=== PATIENT | female | born 1945 | race Caucasian/White ===

== ENCOUNTER 2018-06-14 06:34 | Inpatient (IN) | payer MEDICARE, BC ==
[~2018-06-14] VITALS: Ht 157.5 cm; Wt 81.8 kg
[~2018-06-14 06:34] MED LIST: ALBU0.63 NEB; AMIO200T40 PO; APIXABAN PO; ERGO500014 PO; FURO40TA4 PO; POTA20PA40 PO; PRED5TAB PO; TIOT18CA3 INH
[2018-06-14] MEDS ORDERED: albuterol 2.5 MG/3 ML nebule CONTNEB PRN (07:00)
[2018-06-14] MEDS ORDERED: methylPREDNISolone sod succ 125mg/2ml vial IV ONE (07:00)
[2018-06-14 07:45] LABS: ABG BASE EXCESS 12.2 mmol/L (-2.0-3.0); ABG HCO3 42.3 mmol/L (22.0-26.0); ABG OXYGEN SATURATION 96.8 % (95-98); ABG PCO2 (T) 89.7 mmHg (32.0-45.0); ABG PH (T) 7.291 (7.350-7.450); ABG PO2 (T) 98.1 mmHg (83-108); ALLEN'S TEST Positive; FCOHb 0.5 % (0.5-1.5); FMetHb 0.1 % (0.3-1.12); FO2Hb 96.2 % (94-100); TOTAL HEMOGLOBIN 12.1 G/dl (12.0-16.0)
[2018-06-14] MEDS ORDERED: LORA0.5T PO (07:48)
[2018-06-14] MEDS ORDERED: PANT40TA4 PO (07:48)
[2018-06-14] MEDS ORDERED: APIX5TAB3 PO (07:48)
[2018-06-14] MEDS ORDERED: ALBU18HF2 INH (07:48)
[2018-06-14 07:58] LABS: BASOPHILS % (AUTO) 0.2 % (0-1); EOSINOPHILS # (AUTO) 0.2 X10'3 (0-0.9); EOSINOPHILS % (AUTO) 1.6 % (0-6); HEMATOCRIT 36.2 % (35.0-45.0); HEMOGLOBIN 11.4 g/dl (12.0-16.0); LYMPHOCYTES # (AUTO) 1.1 X10'3 (1.1-4.8); LYMPHOCYTES % (AUTO) 9.9 % (21-51); MEAN CORPUSCULAR HEMOGLOBIN 31.6 PG (27.0-31.0); MEAN CORPUSCULAR HGB CONC 31.6 % (33.0-36.5); MEAN CORPUSCULAR VOLUME 99.9 FL (78-98); MEAN PLATELET VOLUME 9.6 FL (7.4-10.4); MONOCYTES # (AUTO) 1.1 X10'3 (0-0.9); MONOCYTES % (AUTO) 9.5 % (2-12); NEUTROPHILS # (AUTO) 9.1 X10'3 (1.8-7.7); NEUTROPHILS % (AUTO) 78.8 % (42-75); PLATELET COUNT 178 X10'3 (140-440); RED BLOOD COUNT 3.63 X10'6 (4.20-5.60); RED CELL DISTRIBUTION WIDTH 15.8 % (11.5-14.5); WHITE BLOOD COUNT 11.5 X10'3 (4.5-11.0)
[2018-06-14 08:21] LABS: ALANINE AMINOTRANSFERASE 26 U/L (12-78); ALBUMIN 3.6 G/DL (3.4-5.0); ALBUMIN/GLOBULIN RATIO 1.1 (1.1-1.5); ALKALINE PHOSPHATASE 52 IU/L (46-116); ANION GAP 5 (8-16); ASPARTATE AMINO TRANSFERASE 18 U/L (10-37); BILIRUBIN,TOTAL 0.3 MG/DL (0.1-1.0); BLOOD UREA NITROGEN 29 MG/DL (7-18); BUN/CREATININE RATIO 15.3 (6.6-38.0); CALCIUM 8.8 MG/DL (8.5-10.1); CHLORIDE 101 MMOL/L (99-107); GLUCOSE 150 MG/DL (70-104); POTASSIUM 3.4 MMOL/L (3.5-5.1); SODIUM 147 MMOL/L (135-145); TOTAL PROTEIN 6.8 G/DL (6.4-8.2); eGFR 26 ML/MIN
[2018-06-14 08:27] LABS: TOTAL CARBON DIOXIDE 41.4 MMOL/L (24-32)
[2018-06-14 09:41] LABS: ABG HCO3 38.6 mmol/L (22.0-26.0); ABG OXYGEN SATURATION 81.4 % (95-98); ABG PCO2 (T) 66.7 mmHg (32.0-45.0); ABG PO2 (T) 43.8 mmHg (83-108); ALLEN'S TEST Positive; FCOHb 0.6 % (0.5-1.5); FMetHb 0.1 % (0.3-1.12); FO2Hb 80.8 % (94-100); TOTAL HEMOGLOBIN 12.3 G/dl (12.0-16.0)
[2018-06-14] MEDS ORDERED: potassium Cl 40MEQ/NS 500ml 500 ML IV PRN ×2 (10:55)
[2018-06-14] MEDS ORDERED: magnesium 1gm/100ml D5W IVPB 100 ML IV PRN (10:55)
[2018-06-14] MEDS ORDERED: magnesium hydroxide 30ml (MOM) UD suspension PO PRN (10:55)
[2018-06-14] MEDS ORDERED: ondansetron/PF 4mg/2ml inj IV PRN (10:55)
[2018-06-14] MEDS ORDERED: morphine 2 MG/ML inj. syringe IV PRN ×2 (10:55)
[2018-06-14] MEDS ORDERED: mag hydrox/Alum hydrox/simeth 30ml oral suspension PO PRN (10:55)
[2018-06-14] MEDS ORDERED: acetaminophen 650mg rectal suppository RC PRN (10:55)
[2018-06-14] MEDS ORDERED: magnesium 4gm in 100ml NS 100 ML IV PRN (10:55)
[2018-06-14] MEDS ORDERED: potassium Cl 20 mEq SR tablet PO PRN ×2 (10:55)
[2018-06-14 12:45] VITALS: BP 104/54
[2018-06-14] MEDS: pantoprazole 40mg Tablet.DR PO SCH ×2 (13:08→19:54)
[2018-06-14] MEDS: amiodarone 200mg tablet PO SCH (13:08)
[2018-06-14] MEDS: apixaban 5mg tablet PO SCH ×2 (13:08→19:54)
[2018-06-14] MEDS: doxycycline inj 100 MG in normal saline 100ml IV soln 100 ML IV SCH ×2 (14:20→19:51)
[2018-06-14 15:00] VITALS: BP 117/54
[2018-06-14] MEDS: methylPREDNISolone sod succ 125mg/2ml vial IV SCH ×2 (15:58→23:24)
[2018-06-14 19:00] VITALS: BP 114/60
[2018-06-14] MEDS: furosemide 20 MG/2 ML vial IV SCH (19:54)
[2018-06-14 21:45] LABS: CLARITY,URINE CLEAR (Clear); COLOR,URINE YELLOW (Yellow); GLUCOSE, URINE NEGATIVE (Neg); KETONES,URINE NEGATIVE (Neg); LEUKOCYTE ESTERASE ,URINE NEGATIVE (Neg); NITRITES, URINE NEGATIVE (Neg); OCCULT BLOOD,URINE NEGATIVE (Neg); PROTEIN,URINE NEGATIVE (Neg); UROBILINOGEN,URINE 0.2 E.U/dL (0.2-1.0)
[2018-06-14 22:02] LABS: UA COLLECTION TYPE FOLEY CATH
[2018-06-14 23:00] VITALS: BP 116/53
[2018-06-15 03:00] VITALS: BP 124/68
[2018-06-15 05:04] LABS: BASOPHILS % (AUTO) 0 % (0-1); EOSINOPHILS % (AUTO) 0 % (0-6); HEMATOCRIT 31.1 % (35.0-45.0); LYMPHOCYTES # (AUTO) 0.3 X10'3 (1.1-4.8); LYMPHOCYTES % (AUTO) 3.3 % (21-51); MEAN CORPUSCULAR HEMOGLOBIN 31.6 PG (27.0-31.0); MEAN CORPUSCULAR HGB CONC 32.1 % (33.0-36.5); MEAN CORPUSCULAR VOLUME 98.4 FL (78-98); MEAN PLATELET VOLUME 9.9 FL (7.4-10.4); MONOCYTES # (AUTO) 0.2 X10'3 (0-0.9); MONOCYTES % (AUTO) 1.8 % (2-12); NEUTROPHILS # (AUTO) 8.1 X10'3 (1.8-7.7); NEUTROPHILS % (AUTO) 94.9 % (42-75); PLATELET COUNT 149 X10'3 (140-440); RED BLOOD COUNT 3.16 X10'6 (4.20-5.60); RED CELL DISTRIBUTION WIDTH 15.3 % (11.5-14.5); WHITE BLOOD COUNT 8.5 X10'3 (4.5-11.0)
[2018-06-15 05:18] LABS: ALANINE AMINOTRANSFERASE 20 U/L (12-78); ALBUMIN 3.1 G/DL (3.4-5.0); ALBUMIN/GLOBULIN RATIO 1.1 (1.1-1.5); ALKALINE PHOSPHATASE 50 IU/L (46-116); ANION GAP 3 (8-16); ASPARTATE AMINO TRANSFERASE 15 U/L (10-37); BILIRUBIN,TOTAL 0.4 MG/DL (0.1-1.0); BLOOD UREA NITROGEN 32 MG/DL (7-18); BUN/CREATININE RATIO 19.6 (6.6-38.0); CHLORIDE 101 MMOL/L (99-107); CHOL/HDL RATIO 2.3 (0.00-4.99); CHOLESTEROL 205 MG/DL (0-200); CREATININE 1.63 MG/DL (0.40-0.90); GLUCOSE 151 MG/DL (70-104); HDL CHOLESTEROL 88 MG/DL (35-60); LDL CHOLESTEROL 104 MG/DL (50-100); MAGNESIUM 1.9 MG/DL (1.5-2.4); POTASSIUM 4.1 MMOL/L (3.5-5.1); SODIUM 142 MMOL/L (135-145); TOTAL CARBON DIOXIDE 38.4 MMOL/L (24-32); TRIGLYCERIDES 54 MG/DL (20-135); eGFR 31 ML/MIN
[2018-06-15] MEDS: ipratropium/albuterol 3ml nebule NEB PRN ×3 (07:21→14:47)
[2018-06-15] MEDS: K and/or MAG REPLACEMENT MC SCH (08:00)
[2018-06-15] MEDS: furosemide 20 MG/2 ML vial IV SCH ×2 (08:22→20:47)
[2018-06-15] MEDS: apixaban 5mg tablet PO SCH ×2 (08:22→20:46)
[2018-06-15] MEDS: methylPREDNISolone sod succ 125mg/2ml vial IV SCH ×2 (08:22→17:04)
[2018-06-15] MEDS: amiodarone 200mg tablet PO SCH (08:22)
[2018-06-15] MEDS: pantoprazole 40mg Tablet.DR PO SCH ×2 (08:22→20:46)
[2018-06-15] MEDS ORDERED: LORazepam 2 mg/ml vial IV PRN (10:40)
[2018-06-15] MEDS: doxycycline inj 100 MG in normal saline 100ml IV soln 100 ML IV SCH (11:10)
[2018-06-15 15:00] VITALS: BP 128/88
[2018-06-15] MEDS: DOXYCYCLINE 100MG CAPSULE PO SCH (17:03)
[2018-06-15] MEDS: sucralfate 1gm/10ml UD suspension PO SCH ×2 (17:04→20:47)
[2018-06-15 19:00] VITALS: BP 125/66
[2018-06-15] MEDS: lactobacillus rhamnosus 10,000 MMU CELLS/CAPSULE PO SCH (20:46)
[2018-06-15 23:00] VITALS: BP 129/60
[2018-06-16] MEDS: methylPREDNISolone sod succ 125mg/2ml vial IV SCH ×3 (01:17→15:18)
[2018-06-16 03:00] VITALS: BP 139/67
[2018-06-16 05:30] LABS: BASOPHILS % (AUTO) 0 % (0-1); EOSINOPHILS # (AUTO) 0.2 X10'3 (0-0.9); EOSINOPHILS % (AUTO) 1.5 % (0-6); HEMATOCRIT 31.3 % (35.0-45.0); HEMOGLOBIN 10.2 g/dl (12.0-16.0); LYMPHOCYTES # (AUTO) 0.4 X10'3 (1.1-4.8); LYMPHOCYTES % (AUTO) 2.6 % (21-51); MEAN CORPUSCULAR HEMOGLOBIN 31.7 PG (27.0-31.0); MEAN CORPUSCULAR HGB CONC 32.4 % (33.0-36.5); MEAN CORPUSCULAR VOLUME 97.6 FL (78-98); MEAN PLATELET VOLUME 10.2 FL (7.4-10.4); MONOCYTES # (AUTO) 0.3 X10'3 (0-0.9); MONOCYTES % (AUTO) 1.9 % (2-12); NEUTROPHILS # (AUTO) 13.1 X10'3 (1.8-7.7); PLATELET COUNT 158 X10'3 (140-440); RED BLOOD COUNT 3.21 X10'6 (4.20-5.60); RED CELL DISTRIBUTION WIDTH 15.8 % (11.5-14.5); WHITE BLOOD COUNT 13.9 X10'3 (4.5-11.0)
[2018-06-16 05:48] LABS: ALANINE AMINOTRANSFERASE 22 U/L (12-78); ALBUMIN 3.1 G/DL (3.4-5.0); ALBUMIN/GLOBULIN RATIO 1.1 (1.1-1.5); ALKALINE PHOSPHATASE 42 IU/L (46-116); ANION GAP 4 (8-16); ASPARTATE AMINO TRANSFERASE 12 U/L (10-37); BILIRUBIN,TOTAL 0.3 MG/DL (0.1-1.0); BLOOD UREA NITROGEN 48 MG/DL (7-18); BUN/CREATININE RATIO 28.6 (6.6-38.0); CALCIUM 8.9 MG/DL (8.5-10.1); CHLORIDE 101 MMOL/L (99-107); CREATININE 1.68 MG/DL (0.40-0.90); GLUCOSE 145 MG/DL (70-104); MAGNESIUM 2.1 MG/DL (1.5-2.4); POTASSIUM 4.4 MMOL/L (3.5-5.1); SODIUM 144 MMOL/L (135-145); TOTAL CARBON DIOXIDE 39.5 MMOL/L (24-32); eGFR 30 ML/MIN
[2018-06-16] MEDS: K and/or MAG REPLACEMENT MC SCH (08:00)
[2018-06-16] MEDS: ipratropium/albuterol 3ml nebule NEB PRN ×4 (08:12→20:29)
[2018-06-16 08:41] VITALS: BP 142/66
[2018-06-16] MEDS: lactobacillus rhamnosus 10,000 MMU CELLS/CAPSULE PO SCH ×2 (08:51→20:42)
[2018-06-16] MEDS: amiodarone 200mg tablet PO SCH (08:52)
[2018-06-16] MEDS: apixaban 5mg tablet PO SCH ×2 (08:52→20:42)
[2018-06-16] MEDS: DOXYCYCLINE 100MG CAPSULE PO SCH ×2 (08:52→16:57)
[2018-06-16] MEDS: montelukast 10mg tablet PO SCH (08:52)
[2018-06-16] MEDS: furosemide 20 MG/2 ML vial IV SCH ×2 (08:52→20:42)
[2018-06-16] MEDS: pantoprazole 40mg Tablet.DR PO SCH ×2 (08:52→20:42)
[2018-06-16] MEDS: sucralfate 1gm/10ml UD suspension PO SCH ×4 (08:58→20:42)
[2018-06-16 11:00] VITALS: BP 124/56
[2018-06-16 15:00] VITALS: BP 142/69
[2018-06-16 19:00] VITALS: BP 115/54
[2018-06-16] MEDS: fluticasone nasal spray 16GM bottle NS SCH (20:49)
[2018-06-16 23:00] VITALS: BP 114/54
[2018-06-17] VITALS (8 sets, daily range): BP systolic 117–139; BP diastolic 51–102
[2018-06-17] MEDS: methylPREDNISolone sod succ 125mg/2ml vial IV SCH ×3 (00:45→15:18)
[2018-06-17 05:07] LABS: BASOPHILS % (AUTO) 0 % (0-1); EOSINOPHILS % (AUTO) 0 % (0-6); HEMATOCRIT 32.9 % (35.0-45.0); HEMOGLOBIN 10.7 g/dl (12.0-16.0); LYMPHOCYTES # (AUTO) 0.2 X10'3 (1.1-4.8); LYMPHOCYTES % (AUTO) 1.6 % (21-51); MEAN CORPUSCULAR HEMOGLOBIN 31.7 PG (27.0-31.0); MEAN CORPUSCULAR HGB CONC 32.4 % (33.0-36.5); MEAN CORPUSCULAR VOLUME 97.8 FL (78-98); MEAN PLATELET VOLUME 10.2 FL (7.4-10.4); MONOCYTES # (AUTO) 0.4 X10'3 (0-0.9); MONOCYTES % (AUTO) 2.8 % (2-12); NEUTROPHILS % (AUTO) 95.6 % (42-75); PLATELET COUNT 151 X10'3 (140-440); RED BLOOD COUNT 3.36 X10'6 (4.20-5.60); RED CELL DISTRIBUTION WIDTH 15.4 % (11.5-14.5); WHITE BLOOD COUNT 14.6 X10'3 (4.5-11.0)
[2018-06-17 05:34] LABS: ALANINE AMINOTRANSFERASE 19 U/L (12-78); ALBUMIN 3.1 G/DL (3.4-5.0); ALBUMIN/GLOBULIN RATIO 1.1 (1.1-1.5); ALKALINE PHOSPHATASE 47 IU/L (46-116); ANION GAP 7 (8-16); ASPARTATE AMINO TRANSFERASE 11 U/L (10-37); BILIRUBIN,TOTAL 0.4 MG/DL (0.1-1.0); BLOOD UREA NITROGEN 44 MG/DL (7-18); BUN/CREATININE RATIO 27.8 (6.6-38.0); CALCIUM 8.6 MG/DL (8.5-10.1); CHLORIDE 101 MMOL/L (99-107); CREATININE 1.58 MG/DL (0.40-0.90); GLUCOSE 143 MG/DL (70-104); MAGNESIUM 2.1 MG/DL (1.5-2.4); POTASSIUM 3.5 MMOL/L (3.5-5.1); SODIUM 145 MMOL/L (135-145); TOTAL CARBON DIOXIDE 37.2 MMOL/L (24-32); TOTAL PROTEIN 5.9 G/DL (6.4-8.2); eGFR 32 ML/MIN
[2018-06-17] MEDS: sucralfate 1gm/10ml UD suspension PO SCH ×4 (07:40→21:37)
[2018-06-17] MEDS: furosemide 20 MG/2 ML vial IV SCH ×2 (07:40→21:37)
[2018-06-17] MEDS: lactobacillus rhamnosus 10,000 MMU CELLS/CAPSULE PO SCH ×2 (07:41→21:37)
[2018-06-17] MEDS: amiodarone 200mg tablet PO SCH (07:41)
[2018-06-17] MEDS: apixaban 5mg tablet PO SCH ×2 (07:42→21:36)
[2018-06-17] MEDS: pantoprazole 40mg Tablet.DR PO SCH ×2 (07:43→21:37)
[2018-06-17] MEDS: DOXYCYCLINE 100MG CAPSULE PO SCH ×2 (07:44→16:59)
[2018-06-17] MEDS: montelukast 10mg tablet PO SCH (07:44)
[2018-06-17] MEDS: fluticasone nasal spray 16GM bottle NS SCH (07:45)
[2018-06-17] MEDS: K and/or MAG REPLACEMENT MC SCH (08:00)
[2018-06-17 16:15] LABS: ABG BASE EXCESS 10.6 mmol/L (-2.0-3.0); ABG HCO3 35.7 mmol/L (22.0-26.0); ABG OXYGEN SATURATION 94.9 % (95-98); ABG PCO2 (T) 49.7 mmHg (32.0-45.0); ABG PH (T) 7.474 (7.350-7.450); ABG PO2 (T) 73.8 mmHg (83-108); ALLEN'S TEST Positive; FCOHb 0.3 % (0.5-1.5); FMetHb 0.2 % (0.3-1.12); FO2Hb 94.4 % (94-100); TOTAL HEMOGLOBIN 12.4 G/dl (12.0-16.0)
[2018-06-17] MEDS: ipratropium/albuterol 3ml nebule NEB PRN ×2 (19:54→23:04)
[2018-06-17] MEDS: diatr meglu/diatrizoate 30ml oral sol.-(3 dose) bottle PO SCH (21:38)
[2018-06-18] MEDS: methylPREDNISolone sod succ 125mg/2ml vial IV SCH ×3 (00:28→16:29)
[2018-06-18 02:00] VITALS: BP 123/55
[2018-06-18 05:51] LABS: BASOPHILS % (AUTO) 0 % (0-1); EOSINOPHILS % (AUTO) 0 % (0-6); HEMATOCRIT 35.3 % (35.0-45.0); HEMOGLOBIN 11.2 g/dl (12.0-16.0); LYMPHOCYTES # (AUTO) 0.2 X10'3 (1.1-4.8); LYMPHOCYTES % (AUTO) 1.7 % (21-51); MEAN CORPUSCULAR HGB CONC 31.8 % (33.0-36.5); MEAN CORPUSCULAR VOLUME 97.6 FL (78-98); MEAN PLATELET VOLUME 9.9 FL (7.4-10.4); MONOCYTES # (AUTO) 0.3 X10'3 (0-0.9); MONOCYTES % (AUTO) 2.7 % (2-12); NEUTROPHILS # (AUTO) 10.9 X10'3 (1.8-7.7); NEUTROPHILS % (AUTO) 95.6 % (42-75); PLATELET COUNT 159 X10'3 (140-440); RED BLOOD COUNT 3.62 X10'6 (4.20-5.60); RED CELL DISTRIBUTION WIDTH 15.5 % (11.5-14.5); WHITE BLOOD COUNT 11.4 X10'3 (4.5-11.0)
[2018-06-18 06:00] VITALS: BP 126/102
[2018-06-18 06:33] LABS: ALANINE AMINOTRANSFERASE 21 U/L (12-78); ALBUMIN 3.3 G/DL (3.4-5.0); ALBUMIN/GLOBULIN RATIO 1.1 (1.1-1.5); ALKALINE PHOSPHATASE 41 IU/L (46-116); ANION GAP 6 (8-16); ASPARTATE AMINO TRANSFERASE 15 U/L (10-37); BILIRUBIN,TOTAL 0.5 MG/DL (0.1-1.0); BLOOD UREA NITROGEN 48 MG/DL (7-18); BUN/CREATININE RATIO 29.3 (6.6-38.0); CALCIUM 9.1 MG/DL (8.5-10.1); CHLORIDE 101 MMOL/L (99-107); CREATININE 1.64 MG/DL (0.40-0.90); GLUCOSE 150 MG/DL (70-104); MAGNESIUM 2.3 MG/DL (1.5-2.4); POTASSIUM 3.7 MMOL/L (3.5-5.1); SODIUM 145 MMOL/L (135-145); TOTAL PROTEIN 6.3 G/DL (6.4-8.2); eGFR 31 ML/MIN
[2018-06-18] MEDS: pantoprazole 40mg Tablet.DR PO SCH ×2 (07:46→19:38)
[2018-06-18] MEDS: montelukast 10mg tablet PO SCH (07:47)
[2018-06-18] MEDS: amiodarone 200mg tablet PO SCH (07:47)
[2018-06-18] MEDS: DOXYCYCLINE 100MG CAPSULE PO SCH ×2 (07:48→19:39)
[2018-06-18] MEDS: lactobacillus rhamnosus 10,000 MMU CELLS/CAPSULE PO SCH ×2 (07:48→19:39)
[2018-06-18] MEDS: apixaban 5mg tablet PO SCH ×2 (07:48→19:38)
[2018-06-18] MEDS: fluticasone nasal spray 16GM bottle NS SCH (07:49)
[2018-06-18] MEDS: furosemide 20 MG/2 ML vial IV SCH ×2 (07:49→19:37)
[2018-06-18] MEDS: sucralfate 1gm/10ml UD suspension PO SCH ×4 (07:49→21:37)
[2018-06-18] MEDS: diatr meglu/diatrizoate 30ml oral sol.-(3 dose) bottle PO SCH ×2 (07:49→21:00)
[2018-06-18] MEDS: K and/or MAG REPLACEMENT MC SCH (08:00)
[2018-06-18] MEDS: ipratropium/albuterol 3ml nebule NEB PRN (08:15)
[2018-06-18 11:00] VITALS: BP 121/55
[2018-06-18 15:00] VITALS: BP 122/60
[2018-06-18 18:00] VITALS: BP 117/73
[2018-06-18] MEDS: simethicone 80mg chew tab PO SCH ×2 (21:00→21:37)
[2018-06-18 22:00] VITALS: BP 136/60
[2018-06-19] MEDS: methylPREDNISolone sod succ 125mg/2ml vial IV SCH ×2 (00:31→08:03)
[2018-06-19] MEDS: ipratropium/albuterol 3ml nebule NEB PRN ×4 (01:05→14:59)
[2018-06-19 02:00] VITALS: BP 131/58
[2018-06-19 06:54] LABS: BASOPHILS % (AUTO) 0 % (0-1); EOSINOPHILS # (AUTO) 0.1 X10'3 (0-0.9); EOSINOPHILS % (AUTO) 1.1 % (0-6); HEMOGLOBIN 11.1 g/dl (12.0-16.0); LYMPHOCYTES # (AUTO) 0.2 X10'3 (1.1-4.8); LYMPHOCYTES % (AUTO) 1.5 % (21-51); MEAN CORPUSCULAR HEMOGLOBIN 31.3 PG (27.0-31.0); MEAN CORPUSCULAR HGB CONC 31.6 % (33.0-36.5); MEAN PLATELET VOLUME 10.3 FL (7.4-10.4); MONOCYTES # (AUTO) 0.4 X10'3 (0-0.9); MONOCYTES % (AUTO) 3.7 % (2-12); NEUTROPHILS # (AUTO) 10.4 X10'3 (1.8-7.7); NEUTROPHILS % (AUTO) 93.7 % (42-75); PLATELET COUNT 138 X10'3 (140-440); RED BLOOD COUNT 3.54 X10'6 (4.20-5.60); RED CELL DISTRIBUTION WIDTH 15.8 % (11.5-14.5); WHITE BLOOD COUNT 11.1 X10'3 (4.5-11.0)
[2018-06-19 07:00] VITALS: BP 124/101
[2018-06-19 07:01] LABS: ALANINE AMINOTRANSFERASE 20 U/L (12-78); ALBUMIN/GLOBULIN RATIO 1.1 (1.1-1.5); ALKALINE PHOSPHATASE 38 IU/L (46-116); ANION GAP 5 (8-16); ASPARTATE AMINO TRANSFERASE 12 U/L (10-37); BILIRUBIN,TOTAL 0.5 MG/DL (0.1-1.0); BLOOD UREA NITROGEN 55 MG/DL (7-18); BUN/CREATININE RATIO 34.8 (6.6-38.0); CALCIUM 8.7 MG/DL (8.5-10.1); CHLORIDE 100 MMOL/L (99-107); CREATININE 1.58 MG/DL (0.40-0.90); GLUCOSE 145 MG/DL (70-104); MAGNESIUM 2.3 MG/DL (1.5-2.4); POTASSIUM 3.6 MMOL/L (3.5-5.1); SODIUM 144 MMOL/L (135-145); TOTAL CARBON DIOXIDE 39.3 MMOL/L (24-32); TOTAL PROTEIN 5.8 G/DL (6.4-8.2); eGFR 32 ML/MIN
[2018-06-19] MEDS: K and/or MAG REPLACEMENT MC SCH (08:00)
[2018-06-19] MEDS: montelukast 10mg tablet PO SCH (08:01)
[2018-06-19] MEDS: pantoprazole 40mg Tablet.DR PO SCH (08:01)
[2018-06-19] MEDS: simethicone 80mg chew tab PO SCH ×2 (08:01→13:51)
[2018-06-19] MEDS: furosemide 20 MG/2 ML vial IV SCH (08:02)
[2018-06-19] MEDS: sucralfate 1gm/10ml UD suspension PO SCH ×2 (08:02→12:49)
[2018-06-19] MEDS: lactobacillus rhamnosus 10,000 MMU CELLS/CAPSULE PO SCH (08:02)
[2018-06-19] MEDS: DOXYCYCLINE 100MG CAPSULE PO SCH (08:02)
[2018-06-19] MEDS: apixaban 5mg tablet PO SCH (08:02)
[2018-06-19] MEDS: amiodarone 200mg tablet PO SCH (08:10)
[2018-06-19] MEDS: fluticasone nasal spray 16GM bottle NS SCH (08:10)
[2018-06-19] MEDS ORDERED: MYL80T PO (11:44)
[2018-06-19] MEDS ORDERED: PRED20TA PO (11:44)
[2018-06-19] MEDS ORDERED: MONT10TA24 PO (11:44)
[2018-06-19] MEDS ORDERED: SUCR1ORA PO (11:44)
[2018-06-19] MEDS ORDERED: FLUT16SP18 NS (11:44)
[2018-06-19 15:04] VITALS: BP 127/62
== END 2018-06-19 15:17 | disposition home health service (06) | DRG 189 ==
LOC: ER 06:34 → ED HOLD 10:59 → PCU 3S 12:50
PROVIDERS: ADMIT Family Medicine; ATTEND Family Medicine
PROC: 5A09357 Assistance with Respiratory Ventilation, Less than 24 Consecutive Hours, Continuous Positive Airway Pressure (ICD-10-PCS; principal; 2018-06-14)
PROC: 5A09457 Assistance with Respiratory Ventilation, 24-96 Consecutive Hours, Continuous Positive Airway Pressure (ICD-10-PCS; 2018-06-15)
PROC: 5A09357 Assistance with Respiratory Ventilation, Less than 24 Consecutive Hours, Continuous Positive Airway Pressure (ICD-10-PCS; 2018-06-16)
PROC: 5A09357 Assistance with Respiratory Ventilation, Less than 24 Consecutive Hours, Continuous Positive Airway Pressure (ICD-10-PCS; 2018-06-17)
PROC: 5A09357 Assistance with Respiratory Ventilation, Less than 24 Consecutive Hours, Continuous Positive Airway Pressure (ICD-10-PCS; 2018-06-18)
DX: J96.20 Acute and chronic respiratory failure, unspecified whether with hypoxia or hypercapnia (principal); N17.9 Acute kidney failure, unspecified; J44.1 Chronic obstructive pulmonary disease with (acute) exacerbation; E87.4 Mixed disorder of acid-base balance; I13.0 Hypertensive heart and chronic kidney disease with heart failure and stage 1 through stage 4 chronic kidney disease, or unspecified chronic kidney disease; D64.9 Anemia, unspecified; T38.0X5A Adverse effect of glucocorticoids and synthetic analogues, initial encounter; F41.9 Anxiety disorder, unspecified; I48.2 Chronic atrial fibrillation; K29.50 Unspecified chronic gastritis without bleeding; J30.9 Allergic rhinitis, unspecified; K42.9 Umbilical hernia without obstruction or gangrene; N18.9 Chronic kidney disease, unspecified; Z60.2 Problems related to living alone; R14.0 Abdominal distension (gaseous); Z88.2 Allergy status to sulfonamides; Y92.89 Other specified places as the place of occurrence of the external cause; Z79.01 Long term (current) use of anticoagulants; Z81.8 Family history of other mental and behavioral disorders; Z87.891 Personal history of nicotine dependence
CPT/HCPCS: 36415; 36600; 71045; 74176; 80053; 80061; 81003; 82803; 82948; 83735; 83880; 84484; 85018; 85025; 87070; 93005; 93306; 94640; 94660; 94667; 94668; 94760; 97116; 97162; 97530; G0378; J1940; J2060; J2930; J3490; J7030; Q9963

== ENCOUNTER 2018-06-20 09:59 | Observation (INO) | payer MEDICARE, BC ==
[~2018-06-20] VITALS: Ht 162.6 cm; Wt 89.0 kg
[~2018-06-20 09:59] MED LIST changes: +ALBU18HF2 INH; +APIX5TAB3 PO; -APIXABAN PO; -ERGO500014 PO; +FLUT16SP18 NS; +LORA0.5T PO; +MONT10TA24 PO; +MYL80T PO; +PANT40TA4 PO; +PRED20TA PO; -PRED5TAB PO; +SUCR1ORA PO
[2018-06-20] MEDS ORDERED: methylPREDNISolone sod succ 125mg/2ml vial IV ONE (10:05)
[2018-06-20] MEDS ORDERED: albuterol 2.5 MG/3 ML nebule CONTNEB PRN (10:05)
[2018-06-20] MEDS ORDERED: ipratropium 0.5 MG/2.5ML nebule IH ONE (10:05)
[2018-06-20 10:16] LABS: ABG BASE EXCESS 16.1 mmol/L (-2.0-3.0); ABG HCO3 42.8 mmol/L (22.0-26.0); ABG OXYGEN SATURATION 93.9 % (95-98); ABG PH (T) 7.464 (7.350-7.450); ABG PO2 (T) 68.3 mmHg (83-108); FCOHb 0.3 % (0.5-1.5); FLOW 11 L/min; FMetHb 0.1 % (0.3-1.12); FO2Hb 93.5 % (94-100)
[2018-06-20 10:25] LABS: HEMATOCRIT 38.5 % (35.0-45.0); HEMOGLOBIN 12.3 g/dl (12.0-16.0); MEAN CORPUSCULAR HEMOGLOBIN 31.5 PG (27.0-31.0); MEAN CORPUSCULAR VOLUME 98.3 FL (78-98); PLATELET COUNT 138 X10'3 (140-440); RED BLOOD COUNT 3.92 X10'6 (4.20-5.60); RED CELL DISTRIBUTION WIDTH 15.8 % (11.5-14.5); WHITE BLOOD COUNT 16.2 X10'3 (4.5-11.0)
[2018-06-20 10:26] LABS: BASOPHILS % (AUTO) 0.1 % (0-1); EOSINOPHILS % (AUTO) 0 % (0-6); LYMPHOCYTES # (AUTO) 0.3 X10'3 (1.1-4.8); LYMPHOCYTES % (AUTO) 1.7 % (21-51); MEAN PLATELET VOLUME 8.9 FL (7.4-10.4); MONOCYTES # (AUTO) 0.6 X10'3 (0-0.9); NEUTROPHILS # (AUTO) 15.3 X10'3 (1.8-7.7); NEUTROPHILS % (AUTO) 94.2 % (42-75)
[2018-06-20 10:51] LABS: ALANINE AMINOTRANSFERASE 24 U/L (12-78); ALBUMIN 3.5 G/DL (3.4-5.0); ALBUMIN/GLOBULIN RATIO 1.2 (1.1-1.5); ALKALINE PHOSPHATASE 51 IU/L (46-116); ANION GAP 1 (8-16); ASPARTATE AMINO TRANSFERASE 16 U/L (10-37); BILIRUBIN,TOTAL 0.7 MG/DL (0.1-1.0); BLOOD UREA NITROGEN 50 MG/DL (7-18); BUN/CREATININE RATIO 28.9 (6.6-38.0); CALCIUM 9.1 MG/DL (8.5-10.1); CHLORIDE 98 MMOL/L (99-107); CREATININE 1.73 MG/DL (0.40-0.90); GLUCOSE 130 MG/DL (70-104); MAGNESIUM 2.2 MG/DL (1.5-2.4); POTASSIUM 3.3 MMOL/L (3.5-5.1); SODIUM 143 MMOL/L (135-145); TOTAL PROTEIN 6.5 G/DL (6.4-8.2); eGFR 29 ML/MIN
[2018-06-20] MEDS: magnesium 1gm/100ml D5W IVPB 100 ML IV SCH ×2 (10:51→12:18)
[2018-06-20 10:54] LABS: TOTAL CARBON DIOXIDE 43.7 MMOL/L (24-32)
[2018-06-20] MEDS ORDERED: mag hydrox/Alum hydrox/simeth 30ml oral suspension PO PRN (14:35)
[2018-06-20] MEDS ORDERED: magnesium hydroxide 30ml (MOM) UD suspension PO PRN (14:35)
[2018-06-20] MEDS ORDERED: ondansetron/PF 4mg/2ml inj IV PRN (14:35)
[2018-06-20] MEDS ORDERED: acetaminophen 325mg tablet PO PRN (14:35)
[2018-06-20] MEDS: ipratropium/albuterol 3ml nebule NEB SCH ×3 (15:47→23:33)
[2018-06-20] MEDS ORDERED: amiodarone 200mg tablet PO ONE (17:50)
[2018-06-20] MEDS: furosemide 40mg/4ml inj IV SCH (18:33)
[2018-06-20 20:04] VITALS: BP 130/55
[2018-06-20] MEDS: apixaban 5mg tablet PO SCH (20:28)
[2018-06-20 22:00] VITALS: BP 106/58
[2018-06-21 02:00] VITALS: BP 104/61
[2018-06-21] MEDS: ipratropium/albuterol 3ml nebule NEB SCH ×3 (03:34→11:34)
[2018-06-21 05:21] LABS: BASOPHILS % (AUTO) 0 % (0-1); EOSINOPHILS # (AUTO) 0.1 X10'3 (0-0.9); EOSINOPHILS % (AUTO) 1.2 % (0-6); HEMATOCRIT 32.9 % (35.0-45.0); HEMOGLOBIN 10.8 g/dl (12.0-16.0); LYMPHOCYTES # (AUTO) 0.1 X10'3 (1.1-4.8); LYMPHOCYTES % (AUTO) 1.1 % (21-51); MEAN CORPUSCULAR HEMOGLOBIN 31.6 PG (27.0-31.0); MEAN CORPUSCULAR HGB CONC 32.8 % (33.0-36.5); MEAN CORPUSCULAR VOLUME 96.6 FL (78-98); MEAN PLATELET VOLUME 10.5 FL (7.4-10.4); MONOCYTES # (AUTO) 0.4 X10'3 (0-0.9); MONOCYTES % (AUTO) 3.9 % (2-12); NEUTROPHILS # (AUTO) 10.5 X10'3 (1.8-7.7); NEUTROPHILS % (AUTO) 93.8 % (42-75); PLATELET COUNT 119 X10'3 (140-440); RED BLOOD COUNT 3.41 X10'6 (4.20-5.60); RED CELL DISTRIBUTION WIDTH 15.8 % (11.5-14.5); WHITE BLOOD COUNT 11.2 X10'3 (4.5-11.0)
[2018-06-21 05:29] LABS: ANION GAP 2 (8-16); BLOOD UREA NITROGEN 45 MG/DL (7-18); BUN/CREATININE RATIO 29.6 (6.6-38.0); CALCIUM 8.8 MG/DL (8.5-10.1); CHLORIDE 99 MMOL/L (99-107); CREATININE 1.52 MG/DL (0.40-0.90); GLUCOSE 151 MG/DL (70-104); SODIUM 145 MMOL/L (135-145); eGFR 33 ML/MIN
[2018-06-21 05:42] LABS: LARGE PLATELETS FEW; PLATELET ESTIMATE DECREASED
[2018-06-21 05:46] LABS: POTASSIUM 2.9 MMOL/L (3.5-5.1); TOTAL CARBON DIOXIDE 43.9 MMOL/L (24-32)
[2018-06-21] MEDS ORDERED: magnesium 1gm/100ml D5W IVPB 100 ML IV PRN (05:50)
[2018-06-21] MEDS ORDERED: magnesium Cl slow-release 64mg tablet PO PRN (05:50)
[2018-06-21] MEDS ORDERED: magnesium 4gm in 100ml NS 100 ML IV PRN (05:50)
[2018-06-21] MEDS ORDERED: potassium Cl 40MEQ/NS 500ml 500 ML IV PRN ×2 (05:50)
[2018-06-21] MEDS ORDERED: potassium Cl 20 mEq SR tablet PO PRN (05:50)
[2018-06-21 06:52] VITALS: BP 125/57
[2018-06-21] MEDS: furosemide 40mg/4ml inj IV SCH (07:59)
[2018-06-21] MEDS: apixaban 5mg tablet PO SCH (07:59)
[2018-06-21] MEDS ORDERED: amiodarone 200mg tablet PO SCH (08:00)
[2018-06-21] MEDS: potassium Cl 20 mEq SR tablet PO PRN ×2 (08:03→12:35)
[2018-06-21] MEDS ORDERED: predniSONE 20 mg tablet PO SCH (08:30)
[2018-06-21] MEDS ORDERED: MONT10TA21 PO (10:17)
[2018-06-21] MEDS ORDERED: SIME80TA16 PO (10:17)
[2018-06-21] MEDS ORDERED: FURO-149 PO (10:17)
[2018-06-21] MEDS ORDERED: SUCR1TAB PO (10:17)
[2018-06-21] MEDS ORDERED: fluticasone nasal spray 16GM bottle NS SCH (10:20)
[2018-06-21] MEDS ORDERED: FLUT16SP2 BOTHNARES (10:25)
[2018-06-21] MEDS ORDERED: PRED20TA PO (10:27)
[2018-06-21 11:00] VITALS: BP 125/59
[2018-06-21] MEDS ORDERED: rifaximin 550mg tablet PO SCH (13:00)
== END 2018-06-21 15:45 ==
LOC: ER 09:59 → ED HOLD 14:33 → PCU 3S 19:56
PROVIDERS: ADMIT Family Medicine; ATTEND Family Medicine
DX: J44.1 Chronic obstructive pulmonary disease with (acute) exacerbation (principal); J96.21 Acute and chronic respiratory failure with hypoxia; I26.09 Other pulmonary embolism with acute cor pulmonale; I13.0 Hypertensive heart and chronic kidney disease with heart failure and stage 1 through stage 4 chronic kidney disease, or unspecified chronic kidney disease; I50.32 Chronic diastolic (congestive) heart failure; N18.3 Chronic kidney disease, stage 3 (moderate); I48.91 Unspecified atrial fibrillation; E87.6 Hypokalemia; D64.9 Anemia, unspecified; Z87.891 Personal history of nicotine dependence; Z79.01 Long term (current) use of anticoagulants; R14.0 Abdominal distension (gaseous)
CPT/HCPCS: 36415; 36600; 71045; 80048; 80053; 82803; 83735; 83880; 84145; 84484; 85018; 85025; 87070; 93005; 94640; 94660; 94760; 96365; 96366; 96375; 96376; 97116; 97162; 97530; 99285; G0378; J1940; J2930; J7512

== ENCOUNTER 2018-06-22 05:15 | Emergency (ER) | payer MEDICARE, BC ==
[~2018-06-22] VITALS: Ht 162.6 cm; Wt 77.3 kg
[~2018-06-22 05:15] MED LIST changes: -FLUT16SP18 NS; +FLUT16SP2 BOTHNARES; +FURO-149 PO; +MONT10TA21 PO; -MONT10TA24 PO; -MYL80T PO; +SIME80TA16 PO; -SUCR1ORA PO; +SUCR1TAB PO
[2018-06-22] MEDS ORDERED: dexamethasone sod phosphate 10mg/ml inj IV STA (05:33)
[2018-06-22 05:37] LABS: BASOPHILS % (AUTO) 0 % (0-1); EOSINOPHILS # (AUTO) 0.1 X10'3 (0-0.9); EOSINOPHILS % (AUTO) 0.7 % (0-6); HEMATOCRIT 35.5 % (35.0-45.0); HEMOGLOBIN 11.5 g/dl (12.0-16.0); LYMPHOCYTES # (AUTO) 0.5 X10'3 (1.1-4.8); LYMPHOCYTES % (AUTO) 3.2 % (21-51); MEAN CORPUSCULAR HEMOGLOBIN 31.6 PG (27.0-31.0); MEAN CORPUSCULAR HGB CONC 32.3 % (33.0-36.5); MEAN CORPUSCULAR VOLUME 97.8 FL (78-98); MEAN PLATELET VOLUME 10.7 FL (7.4-10.4); MONOCYTES # (AUTO) 0.8 X10'3 (0-0.9); MONOCYTES % (AUTO) 5.3 % (2-12); NEUTROPHILS # (AUTO) 14.3 X10'3 (1.8-7.7); NEUTROPHILS % (AUTO) 90.8 % (42-75); PLATELET COUNT 132 X10'3 (140-440); RED BLOOD COUNT 3.63 X10'6 (4.20-5.60); WHITE BLOOD COUNT 15.8 X10'3 (4.5-11.0)
[2018-06-22 05:46] LABS: ALANINE AMINOTRANSFERASE 26 U/L (12-78); ALBUMIN 3.2 G/DL (3.4-5.0); ALBUMIN/GLOBULIN RATIO 1.1 (1.1-1.5); ALKALINE PHOSPHATASE 43 IU/L (46-116); ANION GAP 6 (8-16); ASPARTATE AMINO TRANSFERASE 18 U/L (10-37); BILIRUBIN,TOTAL 0.6 MG/DL (0.1-1.0); BLOOD UREA NITROGEN 55 MG/DL (7-18); BUN/CREATININE RATIO 32.5 (6.6-38.0); CALCIUM 8.9 MG/DL (8.5-10.1); CHLORIDE 100 MMOL/L (99-107); CREATININE 1.69 MG/DL (0.40-0.90); GLUCOSE 123 MG/DL (70-104); POTASSIUM 3.7 MMOL/L (3.5-5.1); SODIUM 144 MMOL/L (135-145); TOTAL CARBON DIOXIDE 38.2 MMOL/L (24-32); eGFR 30 ML/MIN
[2018-06-22 06:16] LABS: ABG BASE EXCESS 16.1 mmol/L (-2.0-3.0); ABG HCO3 41.3 mmol/L (22.0-26.0); ABG OXYGEN SATURATION 84.9 % (95-98); ABG PCO2 (T) 51.8 mmHg (32.0-45.0); ABG PH (T) 7.519 (7.350-7.450); ABG PO2 (T) 45.6 mmHg (83-108); FCOHb 0.8 % (0.5-1.5); FO2Hb 84.2 % (94-100); PATIENT TEMPERATURE 36.7; TOTAL HEMOGLOBIN 11.8 G/dl (12.0-16.0)
[2018-06-22 06:25] LABS: ANISOCYTOSIS 1+; LARGE PLATELETS FEW; PLATELET ESTIMATE DECREASED
[2018-06-22 07:39] LABS: CLARITY,URINE CLOUDY (Clear); COLOR,URINE YELLOW (Yellow); GLUCOSE, URINE NEGATIVE (Neg); KETONES,URINE NEGATIVE (Neg); LEUKOCYTE ESTERASE ,URINE LARGE (Neg); NITRITES, URINE NEGATIVE (Neg); OCCULT BLOOD,URINE TRACE-INTACT (Neg); PH,URINE >=9.0 (4.8-8.0); PROTEIN,URINE 30 mg/dl (Neg); UROBILINOGEN,URINE 0.2 E.U/dL (0.2-1.0)
[2018-06-22 07:40] LABS: UA COLLECTION TYPE CLN CATCH MIDSTREAM
[2018-06-22 07:59] LABS: BACTERIA,URINE 4+ /HPF (Neg); MUCUS STRANDS MANY /LPF (Neg); RBC,URINE 0-2 /HPF (0-2); SQUAMOUS EPITHELIAL CELL,UR FEW /LPF (FEW); TRIPLE PHOSPHATE CRYST 3+ /HPF (NEGATIVE)
[2018-06-22 10:42] VITALS: BP 140/70
== END 2018-06-22 11:08 ==
LOC: ER 05:16
DX: R06.02 Shortness of breath (principal); R14.0 Abdominal distension (gaseous); I48.91 Unspecified atrial fibrillation; I11.0 Hypertensive heart disease with heart failure; I50.9 Heart failure, unspecified; J44.9 Chronic obstructive pulmonary disease, unspecified; Z88.2 Allergy status to sulfonamides; Z79.899 Other long term (current) drug therapy; Z88.8 Allergy status to other drugs, medicaments and biological substances
CPT/HCPCS: 36415; 36600; 80053; 81001; 82803; 83880; 84484; 85018; 85025; 87077; 87088; 87186; 93005; 96374; 99284; J1100

== ENCOUNTER 2018-08-08 02:19 | Emergency (ER) | payer MEDICARE, BC ==
[~2018-08-08] VITALS: Ht 162.6 cm; Wt 79.5 kg
[~2018-08-08 02:19] MED LIST changes: -FURO40TA4 PO; -MONT10TA21 PO
[2018-08-08] MEDS ORDERED: methylPREDNISolone sod succ 125mg/2ml vial IV ONE (02:25)
[2018-08-08] MEDS ORDERED: ipratropium/albuterol 3ml nebule NEB ONE (02:25)
[2018-08-08] MEDS ORDERED: BUDE0.5A11 IH (02:33)
[2018-08-08] MEDS ORDERED: METO-292 PO (02:33)
[2018-08-08] MEDS ORDERED: POLY17PO10 PO (02:33)
[2018-08-08] MEDS ORDERED: ARFO15VI3 NEB (02:33)
[2018-08-08 03:02] LABS: BASOPHILS % (AUTO) 0.2 % (0-1); EOSINOPHILS # (AUTO) 0.5 X10'3 (0-0.9); EOSINOPHILS % (AUTO) 3.4 % (0-6); HEMATOCRIT 30.9 % (35.0-45.0); HEMOGLOBIN 9.7 g/dl (12.0-16.0); LYMPHOCYTES # (AUTO) 0.8 X10'3 (1.1-4.8); MEAN CORPUSCULAR HGB CONC 31.4 % (33.0-36.5); MEAN CORPUSCULAR VOLUME 98.6 FL (78-98); MEAN PLATELET VOLUME 11.1 FL (7.4-10.4); MONOCYTES # (AUTO) 1.9 X10'3 (0-0.9); MONOCYTES % (AUTO) 13.4 % (2-12); NEUTROPHILS # (AUTO) 10.7 X10'3 (1.8-7.7); PLATELET COUNT 147 X10'3 (140-440); RED BLOOD COUNT 3.14 X10'6 (4.20-5.60); RED CELL DISTRIBUTION WIDTH 16.8 % (11.5-14.5); WHITE BLOOD COUNT 13.9 X10'3 (4.5-11.0)
[2018-08-08 03:24] LABS: ALANINE AMINOTRANSFERASE 19 U/L (12-78); ALBUMIN 2.9 G/DL (3.4-5.0); ALBUMIN/GLOBULIN RATIO 0.8 (1.1-1.5); ALKALINE PHOSPHATASE 56 IU/L (46-116); ANION GAP 4 (8-16); ASPARTATE AMINO TRANSFERASE 13 U/L (10-37); BILIRUBIN,TOTAL 0.5 MG/DL (0.1-1.0); BLOOD UREA NITROGEN 20 MG/DL (7-18); BUN/CREATININE RATIO 13.4 (6.6-38.0); CALCIUM 8.4 MG/DL (8.5-10.1); CHLORIDE 103 MMOL/L (99-107); CREATININE 1.49 MG/DL (0.40-0.90); GLUCOSE 159 MG/DL (70-104); SODIUM 145 MMOL/L (135-145); TOTAL CARBON DIOXIDE 38.2 MMOL/L (24-32); TOTAL PROTEIN 6.6 G/DL (6.4-8.2); eGFR 34 ML/MIN
[2018-08-08 03:33] LABS: INR 1.2 INR; PARTIAL THROMBOPLASTIN TIME 35 SECONDS (22-32); PROTHROMBIN TIME 11.7 SECONDS (9.0-12.0)
[2018-08-08 03:44] VITALS: BP 105/51
[2018-08-08] MEDS ORDERED: LEVO500T2 PO (03:44)
[2018-08-08] MEDS ORDERED: PRED20TA PO (03:44)
[2018-08-08] MEDS ORDERED: albuterol 2.5 MG/3 ML nebule NEB ONE (03:45)
[2018-08-08] MEDS ORDERED: levoFLOXACIN 750MG TABLET PO ONE (03:45)
[2018-08-08 07:08] LABS: TOTAL CELLS COUNTED 100
[2018-08-08 07:09] LABS: ANISOCYTOSIS 1+; HYPOCHROMASIA 1+; LARGE PLATELETS FEW; PLATELET ESTIMATE NORMAL; POLYCHROMASIA FEW; STOMATOCYTES 1+
== END 2018-08-08 05:03 | disposition home or self-care (01) ==
LOC: ER 02:20
DX: J44.1 Chronic obstructive pulmonary disease with (acute) exacerbation (principal); I48.91 Unspecified atrial fibrillation; I50.9 Heart failure, unspecified; I11.0 Hypertensive heart disease with heart failure; Z60.2 Problems related to living alone; Z88.2 Allergy status to sulfonamides; Z88.8 Allergy status to other drugs, medicaments and biological substances; Z79.01 Long term (current) use of anticoagulants; Z79.2 Long term (current) use of antibiotics; Z79.899 Other long term (current) drug therapy
CPT/HCPCS: 36415; 71045; 80053; 83880; 84484; 85025; 85610; 85730; 93005; 94640; 94760; 99284; J2930

== ENCOUNTER 2018-08-16 23:18 | Inpatient (IN) | payer MEDICARE, BC ==
[~2018-08-16] VITALS: Ht 162.6 cm; Wt 88.5 kg
[~2018-08-16 23:18] MED LIST changes: +ARFO15VI3 NEB; +BUDE0.5A11 IH; +LEVO500T2 PO; +METO-292 PO; +POLY17PO10 PO; -PRED20TA PO; -SIME80TA16 PO; -SUCR1TAB PO
[2018-08-16] MEDS ORDERED: ipratropium/albuterol 3ml nebule NEB ONE (23:30)
[2018-08-16] MEDS ORDERED: methylPREDNISolone sod succ 125mg/2ml vial IV ONE (23:35)
[2018-08-16] MEDS ORDERED: methylPREDNISolone sod succ 125mg/2ml vial ONE (23:36)
[2018-08-16] MEDS ORDERED: ipratropium/albuterol 3ml nebule ONE (23:37)
[2018-08-16 23:54] LABS: ALANINE AMINOTRANSFERASE 19 U/L (12-78); ALBUMIN 3.1 G/DL (3.4-5.0); ALBUMIN/GLOBULIN RATIO 0.8 (1.1-1.5); ALKALINE PHOSPHATASE 62 IU/L (46-116); ANION GAP 3 (8-16); ASPARTATE AMINO TRANSFERASE 14 U/L (10-37); BILIRUBIN,TOTAL 0.3 MG/DL (0.1-1.0); BLOOD UREA NITROGEN 25 MG/DL (7-18); BUN/CREATININE RATIO 17.9 (6.6-38.0); CHLORIDE 102 MMOL/L (99-107); GLUCOSE 116 MG/DL (70-104); POTASSIUM 3.9 MMOL/L (3.5-5.1); SODIUM 146 MMOL/L (135-145); eGFR 37 ML/MIN
--- NOTE | 2018-08-16 23:54 | NUR ---
PT REPORTS SIGNIFICANT RELIEF WITH SECOND NEB TREATMENT AND SOLUMEDROL.
[2018-08-16 23:57] LABS: INR 1.1 INR; PARTIAL THROMBOPLASTIN TIME 29 SECONDS (22-32); PROTHROMBIN TIME 11.2 SECONDS (9.0-12.0)
--- NOTE | 2018-08-17 00:15 | NUR ---
Pt assisted with bedpan use for urination where her O2 sats dropped to 75% with the activity of rolling on to right side & lifting buttocks. Once done, O2 rebounded to 91% on 10L NC.
--- NOTE | 2018-08-17 00:30 | NUR ---
PT NOW SLEEPING, APPEARS IN NO DISTRESS, RESP EVEN, UNLABORED.
[2018-08-17 00:32] LABS: BASOPHILS # (AUTO) 0.1 X10'3 (0-0.2); BASOPHILS % (AUTO) 0.9 % (0-1); EOSINOPHILS # (AUTO) 0.6 X10'3 (0-0.9); EOSINOPHILS % (AUTO) 6.3 % (0-6); HEMATOCRIT 33.3 % (35.0-45.0); HEMOGLOBIN 10.4 g/dl (12.0-16.0); LYMPHOCYTES # (AUTO) 0.9 X10'3 (1.1-4.8); LYMPHOCYTES % (AUTO) 9.6 % (21-51); MEAN CORPUSCULAR HEMOGLOBIN 31.1 PG (27.0-31.0); MEAN CORPUSCULAR HGB CONC 31.4 % (33.0-36.5); MEAN CORPUSCULAR VOLUME 99.2 FL (78-98); MEAN PLATELET VOLUME 9.8 FL (7.4-10.4); MONOCYTES # (AUTO) 1.1 X10'3 (0-0.9); MONOCYTES % (AUTO) 11.8 % (2-12); NEUTROPHILS # (AUTO) 6.4 X10'3 (1.8-7.7); NEUTROPHILS % (AUTO) 71.4 % (42-75); PLATELET COUNT 203 X10'3 (140-440); RED BLOOD COUNT 3.35 X10'6 (4.20-5.60); RED CELL DISTRIBUTION WIDTH 15.6 % (11.5-14.5); WHITE BLOOD COUNT 9.1 X10'3 (4.5-11.0)
[2018-08-17] MEDS ORDERED: albuterol 2.5 MG/3 ML nebule NEB ONE ×2 (01:05→02:40)
--- NOTE | 2018-08-17 03:00 | NUR ---
DUE TO PATIENT CONTINUED HYPOXIA AND NEED FOR INCREASED ABOVE NORMAL OXYGEN LEVELS THE PATIENT WILL BE EVALUATED FOR ADMISSION.
[2018-08-17 03:11] LABS: ABG BASE EXCESS 10.1 mmol/L (-2.0-3.0); ABG HCO3 37.4 mmol/L (22.0-26.0); ABG OXYGEN SATURATION 92.7 % (95-98); ABG PCO2 (T) 66.9 mmHg (32.0-45.0); ABG PH (T) 7.365 (7.350-7.450); ABG PO2 (T) 69.9 mmHg (83-108); ALLEN'S TEST Positive; FCOHb 1.2 % (0.5-1.5); FLOW 5 L/min; FMetHb 0.3 % (0.3-1.12); FO2Hb 91.3 % (94-100); PATIENT TEMPERATURE 36.8; TOTAL HEMOGLOBIN 10.5 G/dl (12.0-16.0)
[2018-08-17] MEDS ORDERED: azithromycin/NS 500mg/250ml 250 ML IV ONE (03:35)
[2018-08-17] MEDS ORDERED: mag hydrox/Alum hydrox/simeth 30ml oral suspension PO PRN (04:35)
[2018-08-17] MEDS ORDERED: magnesium hydroxide 30ml (MOM) UD suspension PO PRN (04:35)
[2018-08-17] MEDS ORDERED: ondansetron/PF 4mg/2ml inj IV PRN (04:35)
[2018-08-17] MEDS ORDERED: acetaminophen 325mg tablet PO PRN (04:35)
[2018-08-17] MEDS ORDERED: albuterol 2.5 MG/3 ML nebule NEB PRN (04:40)
[2018-08-17] MEDS ORDERED: LORazepam 0.5 MG tablet PO PRN (04:40)
--- NOTE | 2018-08-17 04:50 | NUR ---
Complete linen change after assisting pt onto bedpan with assistance by Charlene CAMACHO
--- NOTE | 2018-08-17 05:39 | NUR ---
PT WOKE UP AND NEEDED TO GO TO THE BATHROOM, JANICE RAMIREZ ASSISTED PATIENT AND A FULL LINEN CHANGE WAS PERFORMED. PT BACK ASLEEP, SPO2 NORMAL.
--- NOTE | 2018-08-17 06:30 | NUR ---
Patient in room PCU 3027. I have received report from Lashell CAMACHO and had the opportunity to ask questions and assume patient care.
[2018-08-17 07:00] VITALS: BP 124/75
[2018-08-17] MEDS: budesonide 0.5mg/2ml UD nebule IH SCH ×2 (07:16→19:02)
[2018-08-17] MEDS: ARFORMOTEROL TARTRATE IH SCH ×2 (07:17→20:00)
[2018-08-17] MEDS: metoclopramide 10mg tablet PO SCH ×2 (08:00→16:19)
[2018-08-17] MEDS ORDERED: furosemide 40mg tablet PO SCH (08:00)
[2018-08-17] MEDS ORDERED: heparin, porcine 5000 units/ml vial SQ SCH (08:00)
[2018-08-17] MEDS: potassium Cl 20 mEq SR tablet PO SCH (08:17)
[2018-08-17] MEDS: apixaban 5mg tablet PO SCH ×2 (08:18→20:09)
[2018-08-17] MEDS: pantoprazole 40mg Tablet.DR PO SCH ×2 (08:19→20:09)
[2018-08-17] MEDS: methylPREDNISolone sod succ/PF 40mg inj. IV SCH ×2 (08:19→16:18)
[2018-08-17] MEDS ORDERED: ipratropium/albuterol 3ml nebule IH SCH (09:00)
[2018-08-17] MEDS: fluticasone nasal spray 16GM bottle NS SCH (10:43)
[2018-08-17] MEDS ORDERED: SIME80TA61 (10:51)
[2018-08-17 11:00] VITALS: BP 121/57
[2018-08-17] MEDS ORDERED: ipratropium/albuterol 3ml nebule NEB PRN (11:35)
[2018-08-17] MEDS: furosemide 40mg/4ml inj IV SCH ×2 (12:00→23:18)
[2018-08-17] MEDS: ipratropium/albuterol 3ml nebule NEB SCH ×3 (14:04→22:58)
[2018-08-17 15:00] VITALS: BP 99/44
--- NOTE | 2018-08-17 17:53 | NUR ---
Paged RT Paged RT r/t Dr. Rice recommending BiPAP at patient's bedside because pt desats into 60s-70s with minimal activity and 4L NC needed to keep sats greater than 88.
--- NOTE | 2018-08-17 18:23 | NUR ---
Problems reprioritized. Patient report given, questions answered & plan of care reviewed with Dina CAMACHO.
--- NOTE | 2018-08-17 18:30 | NUR ---
Patient in room PCU 3027. I have received report from RADHA CAMACHO and had the opportunity to ask questions and assume patient care WITH RIMMA CAMACHO.
[2018-08-17] MEDS: guaiFENesin ER 600mg tablet PO SCH (20:09)
[2018-08-18] MEDS: methylPREDNISolone sod succ/PF 40mg inj. IV SCH ×2 (00:09→07:18)
[2018-08-18] MEDS: metoclopramide 10mg tablet PO SCH ×3 (00:10→17:19)
[2018-08-18 03:00] VITALS: BP 124/56
[2018-08-18] MEDS: ipratropium/albuterol 3ml nebule NEB SCH ×6 (03:09→23:44)
[2018-08-18 05:10] LABS: BASOPHILS % (AUTO) 0 % (0-1); EOSINOPHILS # (AUTO) 0.2 X10'3 (0-0.9); EOSINOPHILS % (AUTO) 1.7 % (0-6); HEMATOCRIT 27.7 % (35.0-45.0); HEMOGLOBIN 8.9 g/dl (12.0-16.0); LYMPHOCYTES # (AUTO) 0.5 X10'3 (1.1-4.8); LYMPHOCYTES % (AUTO) 4.4 % (21-51); MEAN CORPUSCULAR HEMOGLOBIN 31.5 PG (27.0-31.0); MEAN CORPUSCULAR HGB CONC 32.3 % (33.0-36.5); MEAN CORPUSCULAR VOLUME 97.8 FL (78-98); MEAN PLATELET VOLUME 9.4 FL (7.4-10.4); MONOCYTES # (AUTO) 0.4 X10'3 (0-0.9); NEUTROPHILS # (AUTO) 10.2 X10'3 (1.8-7.7); NEUTROPHILS % (AUTO) 89.9 % (42-75); PLATELET COUNT 182 X10'3 (140-440); RED BLOOD COUNT 2.83 X10'6 (4.20-5.60); RED CELL DISTRIBUTION WIDTH 15.8 % (11.5-14.5); WHITE BLOOD COUNT 11.4 X10'3 (4.5-11.0)
[2018-08-18 05:18] LABS: ALANINE AMINOTRANSFERASE 16 U/L (12-78); ALBUMIN 2.7 G/DL (3.4-5.0); ALBUMIN/GLOBULIN RATIO 0.8 (1.1-1.5); ALKALINE PHOSPHATASE 48 IU/L (46-116); ANION GAP 3 (8-16); ASPARTATE AMINO TRANSFERASE 14 U/L (10-37); BILIRUBIN,TOTAL 0.3 MG/DL (0.1-1.0); BLOOD UREA NITROGEN 30 MG/DL (7-18); BUN/CREATININE RATIO 23.1 (6.6-38.0); CALCIUM 8.6 MG/DL (8.5-10.1); CHLORIDE 101 MMOL/L (99-107); GLUCOSE 161 MG/DL (70-104); POTASSIUM 4.2 MMOL/L (3.5-5.1); SODIUM 144 MMOL/L (135-145); TOTAL CARBON DIOXIDE 39.9 MMOL/L (24-32); TOTAL PROTEIN 6.1 G/DL (6.4-8.2); eGFR 40 ML/MIN
--- NOTE | 2018-08-18 06:15 | NUR ---
Patient in room PCU 3027. I have received report from Dina CAMACHO and had the opportunity to ask questions and assume patient care.
--- NOTE | 2018-08-18 06:21 | NUR ---
Problems reprioritized. Patient report given, questions answered & plan of care reviewed with Florencio CAMACHO.
--- NOTE | 2018-08-18 06:24 | NUR ---
Problems reprioritized. Patient report given, questions answered & plan of care reviewed with RADHA CAMACHO. ORIENTEE documentation: I have reviewed and agree with all interventions, assessments performed and documented by RIMMA CAMACHO.
--- NOTE | 2018-08-18 06:26 | NUR ---
PT RESTED THROUGHOUT THE NIGHT.
[2018-08-18 07:00] VITALS: BP 115/53
[2018-08-18] MEDS: furosemide 40mg/4ml inj IV SCH (07:17)
[2018-08-18] MEDS: azithromycin 250mg tablet PO SCH (07:18)
[2018-08-18] MEDS: guaiFENesin ER 600mg tablet PO SCH ×2 (07:18→20:26)
[2018-08-18] MEDS: potassium Cl 20 mEq SR tablet PO SCH (07:18)
[2018-08-18] MEDS: apixaban 5mg tablet PO SCH ×2 (07:18→20:26)
[2018-08-18] MEDS: pantoprazole 40mg Tablet.DR PO SCH ×2 (07:19→20:26)
[2018-08-18] MEDS: fluticasone nasal spray 16GM bottle NS SCH (07:20)
[2018-08-18] MEDS: budesonide 0.5mg/2ml UD nebule IH SCH ×2 (07:45→20:08)
[2018-08-18] MEDS: ARFORMOTEROL TARTRATE IH SCH ×2 (08:00→20:00)
[2018-08-18 11:00] VITALS: BP 120/58
[2018-08-18 15:00] VITALS: BP 112/53
[2018-08-18 18:00] VITALS: BP 100/43
--- NOTE | 2018-08-18 18:15 | NUR ---
Problems reprioritized. Patient report given, questions answered & plan of care reviewed with Celena CAMACHO.
--- NOTE | 2018-08-18 19:53 | NUR ---
Patient is A&O x4, ABREU but is mildly weak (she reports this is her baseline). She refused to turn so I could do a skin check of her backside and refuses turns as she says "I will move when I want". I will continue to monitor.
[2018-08-18] MEDS: furosemide 40mg tablet PO SCH (20:26)
[2018-08-18] MEDS: lactobacillus rhamnosus 10,000 MMU CELLS/CAPSULE PO SCH (20:26)
[2018-08-19 02:00] VITALS: BP 109/55
[2018-08-19] MEDS: ipratropium/albuterol 3ml nebule NEB SCH ×3 (03:24→11:41)
[2018-08-19 05:17] LABS: BASOPHILS % (AUTO) 0 % (0-1); EOSINOPHILS # (AUTO) 0.2 X10'3 (0-0.9); EOSINOPHILS % (AUTO) 1.7 % (0-6); HEMATOCRIT 29.5 % (35.0-45.0); HEMOGLOBIN 9.4 g/dl (12.0-16.0); LYMPHOCYTES # (AUTO) 0.7 X10'3 (1.1-4.8); LYMPHOCYTES % (AUTO) 5.8 % (21-51); MEAN CORPUSCULAR HEMOGLOBIN 31.2 PG (27.0-31.0); MEAN CORPUSCULAR HGB CONC 31.9 % (33.0-36.5); MEAN PLATELET VOLUME 9.2 FL (7.4-10.4); MONOCYTES % (AUTO) 7.8 % (2-12); NEUTROPHILS # (AUTO) 10.7 X10'3 (1.8-7.7); NEUTROPHILS % (AUTO) 84.7 % (42-75); PLATELET COUNT 207 X10'3 (140-440); RED BLOOD COUNT 3.01 X10'6 (4.20-5.60); RED CELL DISTRIBUTION WIDTH 16.2 % (11.5-14.5); WHITE BLOOD COUNT 12.6 X10'3 (4.5-11.0)
[2018-08-19 05:40] LABS: ALANINE AMINOTRANSFERASE 10 U/L (12-78); ALBUMIN 2.7 G/DL (3.4-5.0); ALBUMIN/GLOBULIN RATIO 0.8 (1.1-1.5); ALKALINE PHOSPHATASE 49 IU/L (46-116); ANION GAP 2 (8-16); ASPARTATE AMINO TRANSFERASE 12 U/L (10-37); BILIRUBIN,TOTAL 0.3 MG/DL (0.1-1.0); BLOOD UREA NITROGEN 36 MG/DL (7-18); BUN/CREATININE RATIO 27.9 (6.6-38.0); CALCIUM 8.6 MG/DL (8.5-10.1); CHLORIDE 100 MMOL/L (99-107); CREATININE 1.29 MG/DL (0.40-0.90); GLUCOSE 132 MG/DL (70-104); POTASSIUM 4.1 MMOL/L (3.5-5.1); SODIUM 143 MMOL/L (135-145); TOTAL PROTEIN 6.1 G/DL (6.4-8.2); eGFR 40 ML/MIN
[2018-08-19 06:08] LABS: TOTAL CARBON DIOXIDE 41.4 MMOL/L (24-32)
--- NOTE | 2018-08-19 06:19 | NUR ---
Problems reprioritized. Patient report given, questions answered & plan of care reviewed with JANICE Matias.
--- NOTE | 2018-08-19 06:20 | NUR ---
Patient in room PCU 3027. I have received report from Celena CAMACHO and had the opportunity to ask questions and assume patient care.
[2018-08-19 07:00] VITALS: BP 111/52
[2018-08-19] MEDS: budesonide 0.5mg/2ml UD nebule IH SCH (07:23)
[2018-08-19] MEDS: azithromycin 250mg tablet PO SCH (08:00)
[2018-08-19] MEDS: ARFORMOTEROL TARTRATE IH SCH (08:00)
[2018-08-19] MEDS: fluticasone nasal spray 16GM bottle NS SCH (09:12)
[2018-08-19] MEDS: lactobacillus rhamnosus 10,000 MMU CELLS/CAPSULE PO SCH (09:30)
[2018-08-19] MEDS: metoclopramide 10mg tablet PO SCH ×2 (09:30)
[2018-08-19] MEDS: apixaban 5mg tablet PO SCH (09:31)
[2018-08-19] MEDS: potassium Cl 20 mEq SR tablet PO SCH (09:31)
[2018-08-19] MEDS: guaiFENesin ER 600mg tablet PO SCH (09:31)
[2018-08-19] MEDS: pantoprazole 40mg Tablet.DR PO SCH (09:31)
[2018-08-19] MEDS: furosemide 40mg tablet PO SCH (09:32)
[2018-08-19] MEDS ORDERED: FURO-149 PO (10:50)
[2018-08-19] MEDS ORDERED: POLY17PO10 PO (10:50)
[2018-08-19 11:00] VITALS: BP 105/50
[2018-08-19] MEDS ORDERED: predniSONE 20 mg tablet PO SCH (12:00)
--- NOTE | 2018-08-19 15:30 | NUR ---
Patient discharged. Patient discharged via [employer]. Patient left unit via wheelchair escorted by [employer] personnel. IV removed and catheter intact. Tele leads removed from patient and tele box returned to telephone directory deliverer. Discharge instructions provided to patient and reviewed with RN. Patient left in personal clothes. All belongings were placed in personal belongings bag and patient confirmed she was leaving with all possessions. Patient had all questions and concerns addressed prior to discharge. Patient opted to utilize [facility] delivery service and left with prescribed medications. Patient left on oxygen at 3L/min.
== END 2018-08-19 15:21 | disposition home health service (06) | DRG 193 ==
LOC: ER 23:19 → ED HOLD 08-17 04:34 → PCU 3S 08-17 06:42
PROVIDERS: ADMIT Internal Medicine; ATTEND Internal Medicine
PROC: 5A09357 Assistance with Respiratory Ventilation, Less than 24 Consecutive Hours, Continuous Positive Airway Pressure (ICD-10-PCS; principal; 2018-08-18)
PROC: 5A09357 Assistance with Respiratory Ventilation, Less than 24 Consecutive Hours, Continuous Positive Airway Pressure (ICD-10-PCS; 2018-08-19)
DX: J18.1 Lobar pneumonia, unspecified organism (principal); J96.21 Acute and chronic respiratory failure with hypoxia; J96.22 Acute and chronic respiratory failure with hypercapnia; J44.1 Chronic obstructive pulmonary disease with (acute) exacerbation; E87.0 Hyperosmolality and hypernatremia; I13.0 Hypertensive heart and chronic kidney disease with heart failure and stage 1 through stage 4 chronic kidney disease, or unspecified chronic kidney disease; J44.0 Chronic obstructive pulmonary disease with (acute) lower respiratory infection; I27.81 Cor pulmonale (chronic); I48.0 Paroxysmal atrial fibrillation; D64.9 Anemia, unspecified; I50.9 Heart failure, unspecified; N18.3 Chronic kidney disease, stage 3 (moderate); Z79.01 Long term (current) use of anticoagulants; Z79.899 Other long term (current) drug therapy; Z99.81 Dependence on supplemental oxygen
CPT/HCPCS: 36415; 36600; 71045; 80053; 82803; 83605; 83880; 84484; 85018; 85025; 85610; 85730; 87040; 87070; 93005; 94640; 94660; 94760; 96374; 99285; G0378; J0456; J1940; J2920; J2930; J7512; J7626; J8597